=== PATIENT | female | born 1945 | race Caucasian/White ===

== ENCOUNTER 2021-06-26 20:57 | Emergency (ER) | payer OTHER ==
[~2021-06-26] VITALS: Ht 152.4 cm; Wt 45.4 kg
[~2021-06-26 20:57] MED LIST: CHOL10002 PO; CYAN500 PO; FLUSAL1005 INH; HYDR-86 PO; LEVSOD50 PO; Naprosyn500 MG PO; Omeprazole20 M1; PRENATAL VITAM PO; Percocet 7.5-31 EACH PO; Stool Softener100 MG PO
[2021-06-26 22:15] LABS: BASOPHILS ABSOLUTE AUTO 0.05 K/mm3 (0.00-0.23); BASOPHILS PERCENT AUTO 1 % (0-2); EOSINOPHILS ABSOLUTE AUTO 0.08 K/mm3 (0.00-0.68); EOSINOPHILS PERCENT AUTO 1 % (0-6); Hematocrit 36.1 % (33.0-51.0); IMMATURE GRAN ABSOLUTE AUTO 0.07 K/mm3 (0.00-0.10); IMMATURE GRAN PERCENT AUTO 1 % (0-1); LYMPHOCYTES ABSOLUTE AUTO 1.77 K/mm3 (0.84-5.20); LYMPHOCYTES PERCENT AUTO 21 % (21-46); MONOCYTES ABSOLUTE AUTO 0.48 K/mm3 (0.16-1.47); MONOCYTES PERCENT AUTO 6 % (4-13); Mean Corpuscular HGB Conc 33.2 g/dL (31.5-36.5); Mean Corpuscular Volume 96 fL (80-100); NEUTROPHILS PERCENT AUTO 71 % (41-73); NRBC ABSOLUTE 0.03 K/mm3 (0.00-0.02); NRBC Auto 0.4 /100 WBC (0.0-0.2); RDW Coefficient Variation 13.9 % (11.7-14.2); RDW Standard Deviation 49.2 fL (35.1-46.3); Red Blood Cell Count 3.75 M/mm3 (3.80-5.20); White Blood Cell Count 8.55 K/mm3 (4.00-11.30)
[2021-06-26 22:22] LABS: Mean Platelet Volume 9.1 fL (9.1-12.4); Platelet Count 445 K/mm3 (150-400)
[2021-06-26 22:33] LABS: Alanine Aminotransfer (ALT/SGP 31 U/L (12-78); Albumin, Blood 3.7 g/dL (3.4-5.0); Albumin/Globulin Ratio 0.9 (0.8-1.8); Alk Phos 99 U/L (50-136); Anion Gap 6 mmol/L (6-16); Aspartate Aminotrans (AST/SGOT 31 U/L (12-37); Bilirubin, Total 0.3 mg/dL (0.1-1.0); Blood Urea Nitrogen 13 mg/dL (8-24); CO2, Blood 26 mmol/L (21-32); Chloride, Blood 102 mmol/L (98-108); Creatinine, Blood 0.59 mg/dL (0.40-1.00); Globulin, Blood 4.1 g/dL (2.2-4.0); Glomerular Filtration Rate >60 (60-); Glucose, Blood 109 mg/dL (70-99); Potassium, Blood 5.2 mmol/L (3.5-5.5); Sodium, Blood 134 mmol/L (136-145); Total Protein, Blood 7.8 g/dL (6.4-8.2)
[2021-06-26 22:53] LABS: Source, Urine Clean Catch
[2021-06-26 22:55] LABS: Bilirubin, Urine Neg (Neg); Blood, Urine 2+ (Neg); Glucose Qualitative, Urine Neg (Neg); Ketones, Urine Neg (Neg); Leukocyte Esterase, Urine Neg (Neg); Nitrite, Urine Neg (Neg); Protein, Urine Neg (Neg); Specific Gravity, Urine 1.015 (1.003-1.022); Urobilinogen, Urine NORM (Normal)
[2021-06-26 23:06] LABS: Appearance, Urine Clear (Clear); Color, Urine Yellow (P-Yellow)
[2021-06-26 23:07] LABS: Bacteria Mod /hpf; Red Blood Cells, Urine 0-2 /hpf (0-2); Squamous Epithelial Cells Few /hpf (Few); White Blood Cells, Urine 0-2 /hpf (0-5)
[2021-06-27] MEDS ORDERED: Carafate1 GM/10 ML PO (01:01)
[2021-06-27] MEDS ORDERED: OMEP20ER PO (01:01)
== END 2021-06-27 01:16 | disposition home or self-care (01) ==
LOC: ER 20:57
PROVIDERS: Physician Assistant
DX: K44.9 Diaphragmatic hernia without obstruction or gangrene (principal); Z88.0 Allergy status to penicillin; Z88.6 Allergy status to analgesic agent; Z79.899 Other long term (current) drug therapy; J44.9 Chronic obstructive pulmonary disease, unspecified; F17.210 Nicotine dependence, cigarettes, uncomplicated
CPT/HCPCS: 74176; 80053; 81001; 82272; 83690; 85025; 87086; 96374; 99284-25; A9270

== ENCOUNTER 2022-06-17 15:16 | Emergency (ER) | payer OTHER ==
[~2022-06-17] VITALS: Ht 149.9 cm; Wt 44.9 kg
[~2022-06-17 15:16] MED LIST changes: +Carafate1 GM/10 ML PO; +OMEP20ER PO; +ZERVIATE1 EACH BOTHEYES
[2022-06-17] MEDS ORDERED: POTA8 (15:31)
[2022-06-17] MEDS ORDERED: VITAMIN B122500 MC1 (15:32)
[2022-06-17] MEDS ORDERED: ZINC50 M3 (15:34)
[2022-06-17] MEDS ORDERED: CALCIUM 500 MG1 EAC2 (15:34)
[2022-06-17] MEDS ORDERED: MAGCHL64ER (15:35)
[2022-06-17] MEDS ORDERED: LIDO700A20 TOP (16:55)
[2022-06-17 17:02] VITALS: BP 175/86
== END 2022-06-17 17:01 | disposition home or self-care (01) ==
LOC: ER 15:16
DX: M54.50 Low back pain, unspecified (principal); G89.29 Other chronic pain; Z88.0 Allergy status to penicillin; Z88.6 Allergy status to analgesic agent; Z79.899 Other long term (current) drug therapy; J44.9 Chronic obstructive pulmonary disease, unspecified; F17.210 Nicotine dependence, cigarettes, uncomplicated
CPT/HCPCS: 96372; 99283-25; A9270; J1885

== ENCOUNTER 2023-01-16 20:14 | Emergency (ER) | payer OTHER ==
[~2023-01-16] VITALS: Ht 144.8 cm; Wt 40.8 kg
[~2023-01-16 20:14] MED LIST changes: +CALCIUM 500 MG1 EAC2; +LIDO700A20 TOP; +MAGCHL64ER; +POTA8; +VITAMIN B122500 MC1; +ZINC50 M3
[2023-01-17 00:45] VITALS: BP 169/87
== END 2023-01-17 02:25 | disposition home or self-care (01) ==
LOC: ER 20:14
DX: M54.50 Low back pain, unspecified (principal); M54.6 Pain in thoracic spine; G89.29 Other chronic pain; R03.0 Elevated blood-pressure reading, without diagnosis of hypertension; J44.9 Chronic obstructive pulmonary disease, unspecified; F17.210 Nicotine dependence, cigarettes, uncomplicated; Z79.899 Other long term (current) drug therapy; Z88.0 Allergy status to penicillin; Z88.6 Allergy status to analgesic agent; W18.30XA Fall on same level, unspecified, initial encounter
CPT/HCPCS: 72128; 72131; 96374; 99284-25; A9270; J1885

== ENCOUNTER 2024-07-05 17:45 | Emergency (ER) | payer OTHER ==
[~2024-07-05] VITALS: Ht 152.4 cm; Wt 43.1 kg
[2024-07-05 17:59] VITALS: BP 171/91
== END 2024-07-05 23:18 | disposition left against medical advice (07) ==
LOC: ER 17:45
DX: M54.6 Pain in thoracic spine (principal); Z53.21 Procedure and treatment not carried out due to patient leaving prior to being seen by health care provider; W18.30XA Fall on same level, unspecified, initial encounter

== ENCOUNTER 2024-07-08 22:14 | Emergency (ER) | payer OTHER ==
[~2024-07-08] VITALS: Ht 152.4 cm; Wt 40.8 kg
[2024-07-08] MEDS ORDERED: Lidocaine 4% 1 Patch TOP ONE (23:55)
[2024-07-09] MEDS ORDERED: OxyCODONE 5 mg/Acetamin 325 mg TABLET PO ONE (00:30)
[2024-07-09 01:39] VITALS: BP 185/79
[2024-07-09] MEDS ORDERED: RX Prepack 2 Sprays Naloxone HCL 4 MG/SPRAY UD ONE (02:50)
[2024-07-09] MEDS ORDERED: RX Prepack 6 Tabs Oxycodone 5mg UD ONE (02:50)
== END 2024-07-09 03:14 | disposition home or self-care (01) ==
LOC: ER 22:14
DX: S32.019A Unspecified fracture of first lumbar vertebra, initial encounter for closed fracture (principal); J44.9 Chronic obstructive pulmonary disease, unspecified; F17.210 Nicotine dependence, cigarettes, uncomplicated; X58.XXXA Exposure to other specified factors, initial encounter; Z88.0 Allergy status to penicillin; Z88.6 Allergy status to analgesic agent
CPT/HCPCS: 72128; 72131; 99284-25; A9270

== ENCOUNTER 2024-07-14 18:43 | Emergency (ER) | payer OTHER ==
[~2024-07-14] VITALS: Ht 149.9 cm; Wt 39.0 kg
[2024-07-14 19:11] VITALS: BP 146/96
[2024-07-14] MEDS ORDERED: OxyCODONE 10/Acetamin 325 TABLET PO ONE (20:35)
[2024-07-14] MEDS ORDERED: Lidocaine 4% 1 Patch TOP ONE (20:35)
[2024-07-14] MEDS ORDERED: Ketorolac Tromethamine 15mg Vial IM ONE (20:35)
[2024-07-14] MEDS ORDERED: LIDO700A20 TOP (21:24)
[2024-07-14] MEDS ORDERED: OXYACE7.5T PO (21:24)
== END 2024-07-14 21:33 | disposition home or self-care (01) ==
LOC: ER 18:43
DX: M54.50 Low back pain, unspecified (principal); Z87.311 Personal history of (healed) other pathological fracture; Z88.8 Allergy status to other drugs, medicaments and biological substances; Z88.0 Allergy status to penicillin; J44.9 Chronic obstructive pulmonary disease, unspecified; F17.210 Nicotine dependence, cigarettes, uncomplicated
CPT/HCPCS: 96372; 99283-25; A9270; J1885

== ENCOUNTER 2024-10-13 16:58 | Emergency (ER) | payer OTHER ==
[~2024-10-13] VITALS: Ht 152.4 cm; Wt 39.9 kg
[~2024-10-13 16:58] MED LIST changes: +OXYACE7.5T PO
[2024-10-13] MEDS ORDERED: RX Prepack 6 Tabs Oxycodone 5mg UD ONE (19:55)
[2024-10-13 20:06] VITALS: BP 193/79
== END 2024-10-13 20:17 | disposition home or self-care (01) ==
LOC: ER 16:58
DX: M54.50 Low back pain, unspecified (principal); M54.6 Pain in thoracic spine; J44.9 Chronic obstructive pulmonary disease, unspecified; F17.210 Nicotine dependence, cigarettes, uncomplicated; Z88.0 Allergy status to penicillin; Z88.6 Allergy status to analgesic agent
CPT/HCPCS: 70450; 72070; A9270

== ENCOUNTER 2024-12-01 22:28 | Emergency (ER) | payer OTHER ==
[~2024-12-01] VITALS: Ht 160 cm; Wt 36.3 kg
[2024-12-02] MEDS ORDERED: Ketorolac Tromethamine 15mg Vial IV ONE (03:10)
[2024-12-02] MEDS ORDERED: OXYC5 PO (06:41)
[2024-12-02 06:45] VITALS: BP 166/73
[2024-12-02] MEDS ORDERED: Lidocaine 4% 1 Patch TOP ONE (06:45)
[2024-12-02] MEDS ORDERED: LIDO700A20 TOP (06:46)
== END 2024-12-02 07:57 | disposition home or self-care (01) ==
LOC: ER 22:28
DX: M54.6 Pain in thoracic spine (principal); G89.29 Other chronic pain; J44.9 Chronic obstructive pulmonary disease, unspecified; F17.210 Nicotine dependence, cigarettes, uncomplicated; Z88.0 Allergy status to penicillin; Z88.8 Allergy status to other drugs, medicaments and biological substances; W18.30XA Fall on same level, unspecified, initial encounter
CPT/HCPCS: 72128; 96374; 99284-25; A9270; J1885